=== PATIENT | male | born 1950 | race African-American/Black ===

== ENCOUNTER 2016-12-09 18:52 | Inpatient (IN) | payer MEDICAID, MEDICARE ==
[2016-12-09 19:48] LABS: Bilirubin Negative (Negative); Blood, Urine Large (Negative); Glucose, Urine (Dipstick) Negative (Negative); Ketone, Urine 15 mg/dL (Negative); Nitrite Negative (Negative); Protein, Urine (Dipstick) 100 mg/dL (Neg-Trace)
[2016-12-09 19:52] LABS: Bacteria/HPF 4+ HPF (None Seen); Squamous Epithelial 0-3 HPF (0-3)
[2016-12-09 20:02] LABS: Hyaline Casts/LPF NONE SEEN LPF (0-3 Hyaline); Yeast-All Forms None Seen HPF (None Seen)
--- NOTE | 2016-12-09 20:06 | RAD ---
AP CHEST: History: Fever. Date: 12-09-16 Comparison: 02-13-16 FINDINGS: EKG leads are seen over the chest. There is an area of airspace opacity in the region of the lateral left heart concerning for an area of opacification in the lingula. This may represent an area of lingular pneumonia. The right lung is well aerated. IMPRESSION: Area of opacity in the left pericardiac area compatible with an area of lingular pneumonia. Follow u p films to resolution recommended. POS: [facility]
[2016-12-09 20:42] LABS: Lactic Acid - Sepsis 1.4 mmol/L (0.5-2.2)
[2016-12-09 20:46] LABS: ALT (SGPT) Less than 7 U/L (8-55); AST (SGOT) 11 U/L (5-34); Alkaline Phosphatase 91 U/L (40-150); Anion Gap 13 mmol/L (10-20); BUN (Urea Nitrogen) 9 mg/dL (8.4-25.7); Bilirubin, Total 0.3 mg/dL (0.2-1.2); Calc. Creatinine Clearance 0 mL/min (70-130); Carbon Dioxide 27 mmol/L (23-31); Chloride 101 mmol/L (98-107); Estimated GFR-MDRD Greater than 90; Globulin 3.9 g/dL (2.4-3.5); Protein, Total 5.8 g/dL (5.8-8.1)
[2016-12-09 20:56] LABS: Band 14 % (5-11); Hematocrit 27.1 % (42.0-52.0); Hypochromia SLIGHT = 6-15 cells (100X) (0-5/hpf); Mean Platelet Volume 9.9 fL (7.4-10.4); Metamyelocyte 2 % (0-0); Neutrophil 74 % (42-75); Polychromasia SLIGHT = 2-3 cells (100X) (0-2/hpf); Red Blood Cell (RBC) Count 2.75 mill/uL (4.70-6.10); Schistocytes SLIGHT = 2-5 cells (100X) (0-1/hpf); White Blood Cell (WBC) Count 24.1 thou/uL (4.8-10.8)
[2016-12-09] MEDS ORDERED: Potassium Chloride 20 MEQ/100 ML PREMIX BAG ONE (21:36)
[2016-12-10] MEDS ORDERED: Sodium Chloride 0.9% 1,000 ML IV SCH (00:45)
[2016-12-10] MEDS ORDERED: Ondansetron HCl/PF 4 MG/2 ML Vial IVP PRN ×2 (00:45→03:01)
[2016-12-10] MEDS ORDERED: Ondansetron ODT 4 MG TAB SL PRN (00:45)
[2016-12-10 01:12] VITALS: BMI 27.3
[2016-12-10] MEDS ORDERED: Milk Of Magnesia 30 ML UDCUP PO PRN (03:01)
[2016-12-10] MEDS ORDERED: Acetaminophen 325 MG TAB PO PRN (03:01)
[2016-12-10] MEDS ORDERED: Senokot 8.6 MG TAB PO PRN (03:01)
[2016-12-10] MEDS ORDERED: HYDROcodone/Acetaminophen 5/325 mg Tablet PO PRN (03:01)
[2016-12-10] MEDS ORDERED: Ondansetron ODT 4 MG TAB PO PRN (03:01)
[2016-12-10] MEDS ORDERED: Loperamide HCl 2 MG CAP PO PRN (03:01)
[2016-12-10] MEDS ORDERED: Mag-Al 1200 mg/1200 mg/30 ML UDCUP PO PRN (03:01)
[2016-12-10] MEDS: NS 0.9% w/ 40 MEQ KCL 1,000 ML IV SCH ×2 (04:17→23:32)
[2016-12-10] MEDS: Vancomycin HCl 1.25 GM in Sodium Chloride 0.9% 250 ML 250 ML IVPB SCH ×2 (04:18→15:36)
[2016-12-10] MEDS: methylPREDNISolone Sod Succ/PF 125 MG/2 ML VIAL IVP SCH ×2 (05:10→15:36)
[2016-12-10 05:12] LABS: ALT (SGPT) Less than 7 U/L (8-55); AST (SGOT) 11 U/L (5-34); Alkaline Phosphatase 83 U/L (40-150); Anion Gap 8 mmol/L (10-20); BUN (Urea Nitrogen) 10 mg/dL (8.4-25.7); Bilirubin, Total 0.2 mg/dL (0.2-1.2); Calc. Creatinine Clearance 106 mL/min (70-130); Calcium 7.9 mg/dL (7.8-10.44); Carbon Dioxide 30 mmol/L (23-31); Chloride 102 mmol/L (98-107); Estimated GFR-MDRD Greater than 90; Magnesium 1.8 mg/dL (1.6-2.6)
[2016-12-10 05:17] LABS: Hematocrit 27.9 % (42.0-52.0); Mean Platelet Volume 9.5 fL (7.4-10.4); Red Blood Cell (RBC) Count 2.82 mill/uL (4.70-6.10); White Blood Cell (WBC) Count 27.5 thou/uL (4.8-10.8)
[2016-12-10 05:33] LABS: Band 16 % (5-11); Hypochromia SLIGHT = 6-15 cells (100X) (0-5/hpf); Metamyelocyte 1 % (0-0); Neutrophil 71 % (42-75); Nucleated RBC 1 % (0); Polychromasia SLIGHT = 2-3 cells (100X) (0-2/hpf); Rouleaux Formation SLIGHT = 1-5 cells (100X) (None Seen)
[2016-12-10] MEDS ORDERED: Piperacillin/Tazobactam 4.5 GM, Admixture Fee 1 EACH in Sodium Chloride 0.9% 100 ML IVPB SCH (06:00)
--- NOTE | 2016-12-10 06:24 | HP ---
PRIMARY CARE PHYSICIAN: City call admission. REASON FOR ADMISSION: Sepsis, pneumonia, urinary tract infection, and hypoxic respiratory failure. HISTORY OF PRESENT ILLNESS: A 66-year-old male with multiple medical problems, who was brought to emergency room for fever, cough, and dyspnea. This patient was having crackles all over his chest and his fever was 102.1 at home. Patient was hypoxic when Paramedics brought him to the emergency room. Patient was given IV fluid by Paramedics and this patient is an extremely poor historian. He is not able to concentrate for providing good history. He has underlying schizophrenia. When he presented to the emergency room, he was relatively hypotensive, tachycardic, and he had routine blood test, which showed leukocytosis with bandemia, hypokalemia. His urinalysis was consistent with tract infection. The chest x-ray showed lingular infiltration. This patient was recently admitted in our hospital for obstructive uropathy. At this point, we are admitting this patient for sepsis. PAST MEDICAL HISTORY: History of obstructive uropathy, resulted in two kidney failure during previous admission; history of bilateral hydronephrosis and hydroureter secondary to problem #1; history of prostate cancer with metastasis ; chronic bilateral lower extremity edema; schizophrenia; chronic macrocytic anemia; chronic thrombocytopenia; hypertension. PAST SURGICAL HISTORY: Reviewed and negative. PAST PSYCHIATRIC HISTORY: Schizophrenia. SOCIAL HISTORY: Patient is smoking. Patient also drinks alcohol. He lives in a longterm. FAMILY HISTORY: No strong family history of premature coronary artery disease, stroke, or cancer. REVIEW OF SYSTEMS: All review of systems tried to review with the patient, but unable to review because patient is not providing any good history and review of system is unreliable. ALLERGIES: No known drug allergies. CURRENT HOME MEDICATIONS: Tylenol Arthritis one tablet every 6 hourly p.r.n., Cogentin 1 mg p.o. b.i.d., vitamin B12 of 1000 mcg p.o. daily, Depakote 500 mg p.o. b.i.d., ferrous sulfate 325 mg p.o. daily, Proscar 5 mg p.o. daily, folic acid 1 mg p.o. daily, Lasix 10 mg every other day, Trileptal 75 mg p.o. b.i.d., Protonix 40 mg p.o. daily, MiraLax 17 grams p.o. daily, Flomax 0.4 mg p.o. daily , amlodipine 2.5 mg p.o. daily, Prolixin 100 mg IM every 14 days. EMERGENCY ROOM COURSE: The patient is given Zosyn, levofloxacin, IV fluids, potassium chloride, and DuoNeb therapy. PHYSICAL EXAMINATION: VITAL SIGNS: On arrival, blood pressure 105/70, pulse 112, respiratory rate 22 , temperature 98.1, saturation 97% on 4 liter oxygen, weight 77.1 kilograms. GENERAL: Patient currently appears chronically ill, sick. No obvious acute distress. HEENT: Head: Normocephalic, atraumatic. Eyes: Pupils are round, reactive to light. Extraocular muscles intact. ENT: Poor dentition, moist mucous membranes, no oral lesions. No pharyngeal erythema, no exudates. NECK: Supple. Range of motion is normal. No meningeal signs of irritation. LUNGS: Bilateral coarse breath sounds as well as coarse rhonchi and rales noted. CARDIAC: S1 and S2, regular, tachycardia, no murmur, no gallop, no rub. ABDOMEN: Soft, bowel sounds present, nontender, nondistended. No organomegaly , no mass, no suprapubic tenderness. BACK EXAMINATION: Unremarkable, no CVA tenderness. EXTREMITIES: Upper extremity, passive movement of all joints are normal. Lower extremity, bilateral chronic lower extremity hyperkeratosis and dry skin with chronic skin changes. Chronic edema noted as well. NEUROLOGIC: Grossly nonfocal examination. SIGNIFICANT LABORATORY DATA: 1. CBC: WBC 24.1, hemoglobin 8.2, platelet 230 with bandemia. 2. BMP: Sodium 138, potassium 2.6, chloride 101, carbon dioxide 27, BUN 9, creatinine 0.72, glucose 140, calcium 8.0. 3. Lactic acid 1.4. 4. LFTs: AST 11, ALT less than 7, alkaline phosphatase 91, albumin 1.9. 5. Urinalysis consistent with urinary tract infection. ASSESSMENT AND PLAN/IMPRESSION: 1. Sepsis. This patient has underlying pneumonia as well as urinary tract infection. At this point, the patient will be kept on broad spectrum antibiotic therapy with cefepime, Levaquin, and vancomycin. We will follow up on culture result and change antibiotic therapy accordingly. 2. Lingular pneumonia, community-acquired and bacterial. The patient will be on Levaquin, vancomycin, Mucinex 600 mg twice daily, DuoNeb every 6 hourly, Solu-Medrol 40 mg IV every 8 hourly. 3. Urinary tract infection. We will continue cefepime, Levaquin, and vancomycin. Follow up on urine culture result. 4. Hypokalemia. Patient is already given potassium chloride in the emergency room. We will continue IV fluid with potassium at 75 mL per hour. 5. Macrocytic anemia. Patient will be given folic acid, vitamin B12 while in hospital. 6. Schizophrenia. We will continue Depakote of 500 mg p.o. b.i.d., Cogentin 1 mg p.o. b.i.d., and Trileptal 75 mg p.o. b.i.d. and Prolixin IM every 2 weeks. 7. Benign enlargement of prostate. We will continue Proscar 5 mg p.o. daily, Flomax 0.4 mg p.o. daily. 8. Hypertension. Currently, patient's blood pressure runs lower side, so we will hold on blood pressure medication. 9. Deep venous thrombosis prophylaxis. Lovenox 40 mg subcu daily. 10. Gastrointestinal prophylaxis. Protonix 40 mg p.o. daily. CODE STATUS: The patient is FULL CODE. Patient does not have any surrogate decision maker. Disposition and plan, based on clinical course. We are expecting patient's stay in the hospital more than 2 midnights. Plan of care discussed with the patient in detail. MTDD
[2016-12-10] MEDS ORDERED: FLU VACC TS2017-18 (>65YR) 0.5 ML SYRINGE IM ONE (09:00)
[2016-12-10] MEDS: Cyanocobalamin (Vitamin B-12) 1,000 MCG TAB PO SCH (09:24)
[2016-12-10] MEDS: OXcarbazepine 150 MG TAB PO SCH ×2 (09:24→21:23)
[2016-12-10] MEDS: Folic Acid 1 MG TAB PO SCH (09:24)
[2016-12-10] MEDS: Finasteride 5 MG TAB PO SCH (09:24)
[2016-12-10] MEDS: Saccharomyces boulardii 250 MG CAP PO SCH (09:24)
[2016-12-10] MEDS: Ferrous Sulfate 325 MG TAB PO SCH (09:25)
[2016-12-10] MEDS: Cefepime 2 GM, Admixture Fee 1 EACH in Sodium Chloride 0.9% 100 ML IVPB SCH (09:25)
[2016-12-10] MEDS: Divalproex Sodium DR 500 MG TAB PO SCH ×2 (09:25→21:24)
[2016-12-10] MEDS: Polyethylene Glycol 3350 17 GM Packet PO SCH (09:44)
[2016-12-10] MEDS: guaiFENesin ER 600 MG TAB PO SCH ×2 (09:44→21:23)
[2016-12-10] MEDS: Enoxaparin Sodium 40 MG/0.4 ML SYRINGE SC SCH (09:45)
--- NOTE | 2016-12-10 14:02 | PDOC.EVN ---
Event Note - Event Note Event Note: Chart reviewed, pt seen. Pt not speaking much, occasionally agitated. Continue antibiotics. Will follow.
[2016-12-10] MEDS: Tamsulosin HCl 0.4 MG CAP PO SCH (21:23)
[2016-12-11] MEDS: Cefepime 2 GM, Admixture Fee 1 EACH in Sodium Chloride 0.9% 100 ML IVPB SCH ×3 (01:00→22:28)
[2016-12-11] MEDS: methylPREDNISolone Sod Succ/PF 125 MG/2 ML VIAL IVP SCH ×2 (01:07→05:00)
[2016-12-11] MEDS: NS 0.9% w/ 40 MEQ KCL 1,000 ML IV SCH ×2 (05:00→21:25)
[2016-12-11] MEDS: Vancomycin HCl 1.25 GM in Sodium Chloride 0.9% 250 ML 250 ML IVPB SCH ×2 (05:00→18:48)
--- NOTE | 2016-12-11 10:22 | PDOC.PN ---
- Subjective Encounter Start Date: 12/11/16 Encounter Start Time: 10:20 Mr. Dial does not have any complaints. He knows he is in a hospital, but does not know the year. - Objective Resuscitation Status: Resuscitation Status FULL:Full Resuscitation MAR Reviewed: Yes Vital Signs & Weight: Vital Signs (12 hours) Temp Pulse Resp BP Pulse Ox 12/11/16 07:49 92 20 94 L 12/11/16 04:00 97.3 F L 101 H 20 114/75 97 12/11/16 00:38 96 12/10/16 23:33 99 20 96 Weight Admit Weight 164 lb 3.2 oz Weight 164 lb 4.8 oz I&O: 12/10/16 12/11/16 12/12/16 06:59 06:59 06:59 Intake Total 2040 3660 Output Total 375 1130 Balance 1665 2530 Result Diagrams: 12/10/16 04:36 12/10/16 04:36 Additional Labs: Accuchecks 12/10/16 11:21 POC Glucose 275 H Phys Exam - Physical Examination HEENT: PERRLA + rhonchi bilaterally, no rales Cardiovascular: RRR, no significant murmur Gastrointestinal: soft, non-tender, positive bowel sounds Musculoskeletal: edema present 2-3 + edema, and chronic venous stasis changes Dx/Plan (1) Pneumonia Code(s): J18.9 - PNEUMONIA, UNSPECIFIED ORGANISM Status: Acute (2) UTI (urinary tract infection) Status: Acute Comment: Ucx pending, continue Rocephin 2gm IV q24h (3) Urinary retention due to benign prostatic hyperplasia Code(s): N40.1 - BENIGN PROSTATIC HYPERPLASIA WITH LOWER URINARY TRACT SYMP; R33.8 - OTHER RETENTION OF URINE Status: Acute (4) Diabetes type 2, controlled Code(s): E11.9 - TYPE 2 DIABETES MELLITUS WITHOUT COMPLICATIONS Status: Chronic (5) Schizophrenia Code(s): F20.9 - SCHIZOPHRENIA, UNSPECIFIED Status: Chronic - Plan * Sepsis from Pneumonia, and UTI * Continues to have Leukocytosis- will continue Levaquin, Meropenem, and Vancomycin * Await culture results * Will discontinue steroids * Patient may have some degree of dysphagia- will consult Speech therapy * DM- blood glucose is elevated- ( will discontinue steroids, and continue SSI )
[2016-12-11] MEDS: OXcarbazepine 150 MG TAB PO SCH ×2 (10:55→20:27)
[2016-12-11] MEDS: Ferrous Sulfate 325 MG TAB PO SCH (10:56)
[2016-12-11] MEDS: Cyanocobalamin (Vitamin B-12) 1,000 MCG TAB PO SCH (10:56)
[2016-12-11] MEDS: Saccharomyces boulardii 250 MG CAP PO SCH (10:56)
[2016-12-11] MEDS: Divalproex Sodium DR 500 MG TAB PO SCH ×2 (10:56→20:27)
[2016-12-11] MEDS: Finasteride 5 MG TAB PO SCH (10:56)
[2016-12-11] MEDS: guaiFENesin ER 600 MG TAB PO SCH ×2 (10:57→20:27)
[2016-12-11] MEDS: Enoxaparin Sodium 40 MG/0.4 ML SYRINGE SC SCH (10:57)
[2016-12-11] MEDS: Folic Acid 1 MG TAB PO SCH (10:57)
[2016-12-11] MEDS: Polyethylene Glycol 3350 17 GM Packet PO SCH (10:57)
--- NOTE | 2016-12-11 14:00 | PQF ---
DATE: 12-11-16 ATTN: DR. SOSA SOLARES Please exercise your independent, professional judgment in responding to the clarification form. Clinical indicators are provided on the bottom of this form for your review Please check appropriate box(s): [ X] I (concur) with ER DOCUMENTATION findings as stated below. [X ] Pressure Ulcer: (Stage I: Erythema; Stage II: Partial thickness; Stage III: Full thickness; Stage IV: Necrosis to muscle/bone) [ ] Location: ___Sacral stage 3 POA: [ X ] Yes [ ] No[ ] Unable to determine [ ] No pressure ulcer diagnosis [ ] Deep tissue injury [ ] Other diagnosis [ ] Unable to determine In addition, please specify: Present on Admission (POA): [X ] Yes [ ] No [ ] Unable to determine For continuity of documentation, please document condition throughout progress notes and discharge summary. Thank You. CLINICAL INDICATORS - SIGNS / SYMPTOMS / LABS: ER DOCUMENTATION: PRESSURE ULCER TO THE SACRUM, STAGE 3 RISK FACTORS: NURSE ASSESSMENT 12-10-16: GAIT/BALANCE: WEAK, CAN NOT STAND CLAM SHUCKER CONSULT: 12-10-16: WOUND CARE CONSULT, LIVES IN A CORRECTION. H/O PROSTATE CA WITH METASTASIS, CHRONIC B LLE EDEMA , SCHIZOPHRENIA, TREATMENTS: WOUND CARE CONSULT, CLAM SHUCKER CONSULT- ADD SF MIGHTY SHAKES BID WITH MEALS, SUPPLEMENT AUSTEN BID FOR HEALING (This form is maintained as a part of the permanent medical record) 2014 [employer]. All Rights Reserved MTDD
[2016-12-11 16:22] LABS: Vancomycin, Trough 15.2 ug/mL
[2016-12-11] MEDS: Tamsulosin HCl 0.4 MG CAP PO SCH (20:27)
--- NOTE | 2016-12-11 20:37 | RAD ---
MODIFIED BARIUM SWALLOW WITH SPEECH THERAPIST: 12/11/16 HISTORY: 66-year-old male with dysphagia, unspecified, R13-10. Feeding difficulties, R63.3. Episode of pneumonia, rule out aspiration as a cause. FINDINGS: Oral phase of swallowing is not significantly impaired. There is premature spillage into the vallecu la and piriform sinuses, with moderate residue. Although there is adequate range of movement of the epiglottic inversion, laryngeal elevation, and hyoid protraction, the entire pharyngeal phase of swa llowing is slow. Incidentally, the C5 and C6 vertebral bodies are ankylosed. No penetration of aspir ation. There is delayed swallow reflex. IMPRESSION: 1. No penetration or aspiration. 2. Premature free spillage, residue, and delayed swallow reflex. 3. Although the range of motion of the pharyngeal phase of swallowing is normal, the entire ph aryngeal phase of swallowing motion is slow. 4. 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 POS: [facility]
[2016-12-12] MEDS: Vancomycin HCl 1.25 GM in Sodium Chloride 0.9% 250 ML 250 ML IVPB SCH (03:39)
[2016-12-12 07:40] LABS: #Lymphocytes 1.1 thou/uL (1.20-3.40); #Monocytes 0.4 thou/uL (0.11-0.59); #Neutrophils 5.3 thou/uL (1.40-6.50); %Basophils 0.2 % (0.0-1.0); %Lymphocytes 16.6 % (21.0-51.0); %Monocytes 5.2 % (0.0-10.0); Hematocrit 25.9 % (42.0-52.0); Mean Platelet Volume 10.6 fL (7.4-10.4); Red Blood Cell (RBC) Count 2.57 mill/uL (4.70-6.10); White Blood Cell (WBC) Count 6.7 thou/uL (4.8-10.8)
[2016-12-12 07:57] LABS: Anion Gap 7 mmol/L (10-20); BUN (Urea Nitrogen) 9 mg/dL (8.4-25.7); Calc. Creatinine Clearance 122 mL/min (70-130); Calcium 8.4 mg/dL (7.8-10.44); Carbon Dioxide 29 mmol/L (23-31); Chloride 103 mmol/L (98-107); Estimated GFR-MDRD Greater than 90
--- NOTE | 2016-12-12 08:49 | PDOC.PN ---
- Subjective Encounter Start Date: 12/12/16 Encounter Start Time: 08:47 Mr. Dial is more alert today, I suspect he is at his baseline. He indicates no problems. - Objective Resuscitation Status: Resuscitation Status FULL:Full Resuscitation MAR Reviewed: Yes Vital Signs & Weight: Vital Signs (12 hours) Temp Pulse Resp BP Pulse Ox 12/12/16 04:00 97.5 F L 98 22 H 127/82 12/12/16 00:35 99 12/11/16 23:10 100 16 99 Weight Admit Weight 164 lb 3.2 oz Weight 164 lb 4.8 oz I&O: 12/11/16 12/12/16 12/13/16 06:59 06:59 06:59 Intake Total 3660 4405 Output Total 1130 900 Balance 2530 3505 Result Diagrams: 12/12/16 07:27 12/12/16 07:27 Phys Exam - Physical Examination HEENT: PERRLA + rales at the bases no rhonchi Cardiovascular: RRR, no significant murmur Gastrointestinal: soft, positive bowel sounds Musculoskeletal: edema present + chronic venous stasis changes + sacral decubitus Dx/Plan (1) Pneumonia Code(s): J18.9 - PNEUMONIA, UNSPECIFIED ORGANISM Status: Acute (2) UTI (urinary tract infection) Status: Acute Comment: Ucx pending, continue Rocephin 2gm IV q24h (3) Urinary retention due to benign prostatic hyperplasia Code(s): N40.1 - BENIGN PROSTATIC HYPERPLASIA WITH LOWER URINARY TRACT SYMP; R33.8 - OTHER RETENTION OF URINE Status: Acute (4) Diabetes type 2, controlled Code(s): E11.9 - TYPE 2 DIABETES MELLITUS WITHOUT COMPLICATIONS Status: Chronic (5) Schizophrenia Code(s): F20.9 - SCHIZOPHRENIA, UNSPECIFIED Status: Chronic (6) Decubitus ulcer of sacral region, stage 3 Code(s): L89.153 - PRESSURE ULCER OF SACRAL REGION, STAGE 3 Status: Acute - Plan * Pneumonia- possibly aspiration- will continue Levaquin, but will change Cefepime, to Zosyn * UTI - urine culture is positive for Pseudomonas- huynh sensitive- will continue Levaquin, and Zosyn * Sepsis- resolving. * HTN- blood pressure is stable
[2016-12-12] MEDS: OXcarbazepine 150 MG TAB PO SCH ×2 (08:54→21:32)
[2016-12-12] MEDS: Cyanocobalamin (Vitamin B-12) 1,000 MCG TAB PO SCH (08:56)
[2016-12-12] MEDS: guaiFENesin ER 600 MG TAB PO SCH ×2 (08:56→20:29)
[2016-12-12] MEDS: Ferrous Sulfate 325 MG TAB PO SCH (08:56)
[2016-12-12] MEDS: Saccharomyces boulardii 250 MG CAP PO SCH (08:56)
[2016-12-12] MEDS: Divalproex Sodium DR 500 MG TAB PO SCH ×2 (08:56→21:32)
[2016-12-12] MEDS: Finasteride 5 MG TAB PO SCH (08:56)
[2016-12-12] MEDS: Folic Acid 1 MG TAB PO SCH (08:56)
[2016-12-12] MEDS: Enoxaparin Sodium 40 MG/0.4 ML SYRINGE SC SCH (08:58)
[2016-12-12] MEDS: Polyethylene Glycol 3350 17 GM Packet PO SCH (08:58)
[2016-12-12] MEDS: NS 0.9% w/ 40 MEQ KCL 1,000 ML IV SCH (10:00)
[2016-12-12] MEDS: Amlodipine 5 MG TAB PO SCH (10:27)
[2016-12-12] MEDS: Piperacillin/Tazobactam 3.375 GM, Admixture Fee 1 EACH in Sodium Chloride 0.9% 100 ML IVPB SCH ×2 (12:41→17:32)
[2016-12-12] MEDS: Potassium Chloride 20 MEQ TAB PO SCH ×3 (17:32→18:26)
[2016-12-12] MEDS: Tamsulosin HCl 0.4 MG CAP PO SCH (20:29)
[2016-12-13] MEDS: Piperacillin/Tazobactam 3.375 GM, Admixture Fee 1 EACH in Sodium Chloride 0.9% 100 ML IVPB SCH ×5 (00:22→23:33)
[2016-12-13] MEDS: Amlodipine 5 MG TAB PO SCH (08:38)
[2016-12-13] MEDS: Cyanocobalamin (Vitamin B-12) 1,000 MCG TAB PO SCH (08:38)
[2016-12-13] MEDS: Saccharomyces boulardii 250 MG CAP PO SCH (08:38)
[2016-12-13] MEDS: Finasteride 5 MG TAB PO SCH (08:40)
[2016-12-13] MEDS: Ferrous Sulfate 325 MG TAB PO SCH (08:41)
[2016-12-13] MEDS: Folic Acid 1 MG TAB PO SCH (08:41)
[2016-12-13] MEDS: OXcarbazepine 150 MG TAB PO SCH ×2 (08:42→20:40)
[2016-12-13] MEDS: Potassium Chloride 20 MEQ TAB PO SCH ×2 (08:45→17:34)
[2016-12-13] MEDS: guaiFENesin ER 600 MG TAB PO SCH ×2 (08:47→20:41)
[2016-12-13] MEDS: Enoxaparin Sodium 40 MG/0.4 ML SYRINGE SC SCH ×2 (08:48→09:00)
[2016-12-13] MEDS: Polyethylene Glycol 3350 17 GM Packet PO SCH (08:48)
[2016-12-13] MEDS: Divalproex Sodium DR 500 MG TAB PO SCH ×2 (08:51→20:59)
[2016-12-13 09:04] LABS: Hematocrit 29.2 % (42.0-52.0); Mean Platelet Volume 10.7 fL (7.4-10.4); Red Blood Cell (RBC) Count 2.91 mill/uL (4.70-6.10); White Blood Cell (WBC) Count 8.6 thou/uL (4.8-10.8)
[2016-12-13 09:09] LABS: Anion Gap 8 mmol/L (10-20); BUN (Urea Nitrogen) 5 mg/dL (8.4-25.7); Calc. Creatinine Clearance 111 mL/min (70-130); Calcium 8.4 mg/dL (7.8-10.44); Carbon Dioxide 30 mmol/L (23-31); Chloride 105 mmol/L (98-107); Estimated GFR-MDRD Greater than 90
[2016-12-13 09:29] LABS: Band 1 % (5-11); Hypochromia SLIGHT = 6-15 cells (100X) (0-5/hpf); Macrocytosis SLIGHT = 6-15 cells (100X) (0-5/hpf); Neutrophil 75 % (42-75); Polychromasia SLIGHT = 2-3 cells (100X) (0-2/hpf)
--- NOTE | 2016-12-13 11:04 | PDOC.PN ---
- Subjective Encounter Start Date: 12/13/16 Encounter Start Time: 08:40 -: old records requested/rev Patient seen and examined. No new complaints. No overnight events - Objective Resuscitation Status: Resuscitation Status FULL:Full Resuscitation MAR Reviewed: Yes Vital Signs & Weight: Vital Signs (12 hours) Temp Pulse Resp BP BP Pulse Ox 12/13/16 08:38 115 H 119/75 12/13/16 08:00 97.7 F 115 H 16 95 12/13/16 07:51 97.7 F 115 H 16 118/75 96 12/13/16 03:59 98.3 F 96 18 128/82 97 12/13/16 00:00 98.2 F 108 H 20 115/74 98 Weight Admit Weight 164 lb 3.2 oz Weight 164 lb 4.8 oz I&O: 12/12/16 12/13/16 12/14/16 06:59 06:59 06:59 Intake Total 4405 1380 Output Total 900 2200 Balance 3505 -820 Result Diagrams: 12/13/16 08:40 12/13/16 08:40 Additional Labs: Accuchecks 12/13/16 03:55 POC Glucose 75 Phys Exam - Physical Examination Constitutional: NAD HEENT: PERRLA, moist MMs, sclera anicteric Neck: no JVD, supple Respiratory: no rhonchi, wheezing present coarse sound this morning Cardiovascular: RRR, no significant murmur, no rub Gastrointestinal: soft, non-tender, no distention, positive bowel sounds Musculoskeletal: no edema, pulses present adams+ Neurological: moves all 4 limbs Lymphatic: no nodes Psychiatric: normal affect Skin: no rash, normal turgor Dx/Plan (1) Decubitus ulcer of sacral region, stage 3 Code(s): L89.153 - PRESSURE ULCER OF SACRAL REGION, STAGE 3 Status: Acute (2) Hypokalemia Code(s): E87.6 - HYPOKALEMIA Status: Acute (3) Lactic acidosis Code(s): E87.2 - ACIDOSIS Status: Acute (4) Pneumonia Code(s): J18.9 - PNEUMONIA, UNSPECIFIED ORGANISM Status: Acute (5) UTI (urinary tract infection) Status: Acute Comment: Ucx pending, continue Rocephin 2gm IV q24h (6) BPH (benign prostatic hyperplasia) Code(s): N40.0 - BENIGN PROSTATIC HYPERPLASIA WITHOUT LOWER URINRY TRACT SYMP Status: Chronic (7) Constipation Code(s): K59.00 - CONSTIPATION, UNSPECIFIED Status: Chronic (8) Diabetes type 2, controlled Code(s): E11.9 - TYPE 2 DIABETES MELLITUS WITHOUT COMPLICATIONS Status: Chronic (9) Macrocytic anemia Code(s): D53.9 - NUTRITIONAL ANEMIA, UNSPECIFIED Status: Chronic (10) Schizophrenia Code(s): F20.9 - SCHIZOPHRENIA, UNSPECIFIED Status: Chronic (11) Urinary retention due to benign prostatic hyperplasia Code(s): N40.1 - BENIGN PROSTATIC HYPERPLASIA WITH LOWER URINARY TRACT SYMP; R33.8 - OTHER RETENTION OF URINE Status: Chronic - Plan cont current plan of care, adams catheter, continue antibiotics, PT/OT, social security specialist, speech therapy, respiratory therapy * medication reviewed as below * symptomatic treatment * repeat labs tomorrow * modified diet. * continue zosyn and levaquin Review of Systems - Review of Systems ENT: negative: Ear Pain, Ear Discharge, Nose Pain, Nose Discharge, Nose Congestion, Mouth Pain, Mouth Swelling, Throat Pain, Throat Swelling, Other Respiratory: negative: Cough, Dry, Shortness of Breath, Hemoptysis, SOB with Excertion, Pleuritic Pain, Sputum, Wheezing Cardiovascular: negative: Chest Pain, Palpitations, Orthopnea, Paroxysmal Noc. Dyspnea, Edema, Light Headedness, Other Gastrointestinal: negative: Nausea, Vomiting, Abdominal Pain, Diarrhea, Constipation, Melena, Hematochezia, Other Genitourinary: negative: Dysuria, Frequency, Incontinence, Hematuria, Retention , Other Musculoskeletal: negative: Neck Pain, Shoulder Pain, Arm Pain, Back Pain, Hand Pain, Leg Pain, Foot Pain, Other Other: not reliable due to schizophrenia - Medications/Allergies Allergies/Adverse Reactions: Allergies Allergy/AdvReac Type Severity Reaction Status Date / Time No Known Drug Allergies Allergy Unknown Verified 12/10/16 00:59 Medications: Current Medications Acetaminophen (Tylenol) 650 mg PO Q4H PRN PRN Reason: Headache/Fever or Pain Hydrocodone Bitart/Acetaminophen (Fisher 5/325) 1 tab PO Q4H PRN PRN Reason: Moderate Pain (4-6) Al Hydroxide/Mg Hydroxide (Maalox) 30 ml PO Q6H PRN PRN Reason: Heartburn or Indigestion Albuterol/Ipratropium (Duoneb) 3 ml NEB Q6H PRN PRN Reason: SOB &/or Wheezing Albuterol/Ipratropium (Duoneb) 3 ml NEB [id number] [facility] Last Admin: 12/13/16 06:52 Dose: Not Given Amlodipine Besylate (Norvasc) 2.[address] [facility] Last Admin: 12/13/16 08:38 Dose: 2.5 mg Benztropine Mesylate (Cogentin) [address] [facility] Last Admin: 12/13/16 08:40 Dose: 1 mg Cyanocobalamin (Vitamin B-12) 1,[address] [facility] Last Admin: 12/13/16 08:38 Dose: 1,000 mcg Divalproex Sodium (Depakote) [address] [facility] Last Admin: 12/13/16 08:51 Dose: 500 mg Enoxaparin Sodium (Lovenox) [address] [facility] Last Admin: 12/13/16 09:00 Dose: Not Given Ferrous Sulfate (Feosol) 325 mg PO QAM-WM [facility] Last Admin: 12/13/16 08:41 Dose: 325 mg Finasteride (Proscar) [address] [facility] Last Admin: 12/13/16 08:40 Dose: 5 mg Fluphenazine Decanoate (Prolixin D) [address] [facility] Folic Acid (Folvite) [address] [facility] Last Admin: 12/13/16 08:41 Dose: 1 mg Guaifenesin (Mucinex) [address] [facility] Last Admin: 12/13/16 08:47 Dose: 600 mg Levofloxacin 500 mg/ Device 100 mls @ 100 mls/hr IVPB Q24HR [facility] Last Admin: 12/12/16 20:28 Dose: 100 mls Piperacillin Sod/Tazobactam Sod 3.375 gm/ Miscellaneous Medication 1 each/ Sodium Chloride 100 mls @ 200 mls/hr IVPB Q6HR [facility] Last Admin: 12/13/16 05:42 Dose: 100 mls Loperamide HCl (Imodium) 2 mg PO PRN PRN PRN Reason: Diarrhea/Loose Stools Magnesium Hydroxide (Milk Of Magnesium) 30 ml PO DAILYPRN PRN PRN Reason: Constipation Ondansetron HCl (Zofran Odt) 4 mg PO Q6H PRN PRN Reason: Nausea/Vomiting Ondansetron HCl (Zofran) 4 mg IVP Q6H PRN PRN Reason: Nausea/Vomiting Oxcarbazepine (Trileptal) [address] [facility] Last Admin: 12/13/16 08:42 Dose: 75 mg Pantoprazole Sodium (Protonix) [address] [facility] Last Admin: 12/13/16 08:38 Dose: 40 mg Polyethylene Glycol (Miralax) [address] [facility] Last Admin: 12/13/16 08:48 Dose: Not Given Potassium Chloride (K-Dur) 40 meq PO BID-[facility] Last Admin: 12/13/16 08:45 Dose: 40 meq Saccharomyces Boulardii (Florastor) [address] [facility] Last Admin: 12/13/16 08:38 Dose: 250 mg Senna (Senokot) 2 tab PO HSPRN PRN PRN Reason: Constipation Sodium Chloride (Flush - Normal Saline) [address] [facility] Last Admin: 12/13/16 08:48 Dose: 10 ml Sodium Chloride (Flush - Normal Saline) 10 ml IVF PRN PRN PRN Reason: Saline Flush Tamsulosin HCl (Flomax) 0.[address] [facility] Last Admin: 12/12/16 20:29 Dose: 0.4 mg Zolpidem Tartrate (Ambien) 5 mg PO HSPRN PRN PRN Reason: Insomnia
[2016-12-13] MEDS: Tamsulosin HCl 0.4 MG CAP PO SCH (20:42)
[2016-12-14] MEDS: Piperacillin/Tazobactam 3.375 GM, Admixture Fee 1 EACH in Sodium Chloride 0.9% 100 ML IVPB SCH ×4 (05:15→23:19)
[2016-12-14] MEDS: Cyanocobalamin (Vitamin B-12) 1,000 MCG TAB PO SCH (08:31)
[2016-12-14] MEDS: Amlodipine 5 MG TAB PO SCH (08:31)
[2016-12-14] MEDS: Saccharomyces boulardii 250 MG CAP PO SCH (08:31)
[2016-12-14] MEDS: Potassium Chloride 20 MEQ TAB PO SCH ×2 (08:32→18:00)
[2016-12-14] MEDS: Folic Acid 1 MG TAB PO SCH (08:32)
[2016-12-14] MEDS: Ferrous Sulfate 325 MG TAB PO SCH (08:32)
[2016-12-14] MEDS: Finasteride 5 MG TAB PO SCH (08:32)
[2016-12-14] MEDS: Divalproex Sodium DR 500 MG TAB PO SCH ×2 (08:34→20:30)
[2016-12-14] MEDS: guaiFENesin ER 600 MG TAB PO SCH ×2 (08:34→20:30)
[2016-12-14] MEDS: OXcarbazepine 150 MG TAB PO SCH ×2 (08:34→20:31)
[2016-12-14] MEDS: Polyethylene Glycol 3350 17 GM Packet PO SCH (08:35)
--- NOTE | 2016-12-14 08:43 | RAD ---
1 VIEW CHEST: Date: 12/14/16 COMPARISON: 12/09/16. HISTORY: Pneumonia follow-up. FINDINGS: Persistent opacities in the lung bases. Stable configuration of the cardiac silhouette. The aortic k now appears to be prominent. No pneumothorax. IMPRESSION: Persistent multilobar opacities. Continued surveillance. POS: [facility]
[2016-12-14 08:45] LABS: Anion Gap 8 mmol/L (10-20); BUN (Urea Nitrogen) 4 mg/dL (8.4-25.7); Calc. Creatinine Clearance 122 mL/min (70-130); Calcium 8.3 mg/dL (7.8-10.44); Carbon Dioxide 31 mmol/L (23-31); Chloride 106 mmol/L (98-107); Estimated GFR-MDRD Greater than 90; Magnesium 1.6 mg/dL (1.6-2.6); Phosphorus 2.2 mg/dL (2.3-4.7)
[2016-12-14] MEDS: Enoxaparin Sodium 40 MG/0.4 ML SYRINGE SC SCH (08:49)
--- NOTE | 2016-12-14 10:12 | PDOC.PN ---
- Subjective Encounter Start Date: 12/14/16 Encounter Start Time: 08:50 Patient seen and examined. No new complaints. No overnight events - Objective Resuscitation Status: Resuscitation Status FULL:Full Resuscitation MAR Reviewed: Yes Vital Signs & Weight: Vital Signs (12 hours) Temp Pulse Resp BP Pulse Ox 12/14/16 08:31 91 12/14/16 08:00 97.8 F 91 24 H 99 12/14/16 07:20 97.8 F 94 24 H 107/69 99 12/14/16 04:00 98.2 F 91 16 113/75 96 12/14/16 00:00 97.7 F 91 16 113/75 100 Weight Admit Weight 164 lb 3.2 oz Weight 164 lb 4.8 oz I&O: 12/13/16 12/14/16 12/15/16 06:59 06:59 06:59 Intake Total 1380 500 180 Output Total 2200 2200 Balance -820 -1700 180 Result Diagrams: 12/13/16 08:40 12/14/16 08:13 Radiology Reviewed by me: Yes (chest xray) Phys Exam - Physical Examination Constitutional: NAD HEENT: PERRLA, moist MMs, sclera anicteric Neck: no JVD, supple Respiratory: no wheezing, no rales, no rhonchi Cardiovascular: RRR, no significant murmur, no rub Gastrointestinal: soft, non-tender, no distention Musculoskeletal: no edema, pulses present Neurological: moves all 4 limbs Lymphatic: no nodes Psychiatric: normal affect Skin: no rash, normal turgor Dx/Plan (1) Decubitus ulcer of sacral region, stage 3 Code(s): L89.153 - PRESSURE ULCER OF SACRAL REGION, STAGE 3 Status: Acute (2) Hypokalemia Code(s): E87.6 - HYPOKALEMIA Status: Acute (3) Lactic acidosis Code(s): E87.2 - ACIDOSIS Status: Acute (4) Pneumonia Code(s): J18.9 - PNEUMONIA, UNSPECIFIED ORGANISM Status: Acute (5) UTI (urinary tract infection) Status: Acute Comment: Ucx pending, continue Rocephin 2gm IV q24h (6) BPH (benign prostatic hyperplasia) Code(s): N40.0 - BENIGN PROSTATIC HYPERPLASIA WITHOUT LOWER URINRY TRACT SYMP Status: Chronic (7) Constipation Code(s): K59.00 - CONSTIPATION, UNSPECIFIED Status: Chronic (8) Diabetes type 2, controlled Code(s): E11.9 - TYPE 2 DIABETES MELLITUS WITHOUT COMPLICATIONS Status: Chronic (9) Macrocytic anemia Code(s): D53.9 - NUTRITIONAL ANEMIA, UNSPECIFIED Status: Chronic (10) Schizophrenia Code(s): F20.9 - SCHIZOPHRENIA, UNSPECIFIED Status: Chronic (11) Urinary retention due to benign prostatic hyperplasia Code(s): N40.1 - BENIGN PROSTATIC HYPERPLASIA WITH LOWER URINARY TRACT SYMP; R33.8 - OTHER RETENTION OF URINE Status: Chronic - Plan cont current plan of care, continue antibiotics * repeat chest xray done and reviewed * will continue IV zosyn and levaquin * medication reviewed as below * symptomatic treatment. Review of Systems - Review of Systems ENT: negative: Ear Pain, Ear Discharge, Nose Pain, Nose Discharge, Nose Congestion, Mouth Pain, Mouth Swelling, Throat Pain, Throat Swelling, Other Respiratory: negative: Cough, Dry, Shortness of Breath, Hemoptysis, SOB with Excertion, Pleuritic Pain, Sputum, Wheezing Cardiovascular: negative: Chest Pain, Palpitations, Orthopnea, Paroxysmal Noc. Dyspnea, Edema, Light Headedness, Other Gastrointestinal: negative: Nausea, Vomiting, Abdominal Pain, Diarrhea, Constipation, Melena, Hematochezia, Other Genitourinary: negative: Dysuria, Frequency, Incontinence, Hematuria, Retention , Other Musculoskeletal: negative: Neck Pain, Shoulder Pain, Arm Pain, Back Pain, Hand Pain, Leg Pain, Foot Pain, Other Other: not reliable due to schizophrenia - Medications/Allergies Allergies/Adverse Reactions: Allergies Allergy/AdvReac Type Severity Reaction Status Date / Time No Known Drug Allergies Allergy Unknown Verified 12/10/16 00:59 Medications: Current Medications Acetaminophen (Tylenol) 650 mg PO Q4H PRN PRN Reason: Headache/Fever or Pain Hydrocodone Bitart/Acetaminophen (Hardy 5/325) 1 tab PO Q4H PRN PRN Reason: Moderate Pain (4-6) Al Hydroxide/Mg Hydroxide (Maalox) 30 ml PO Q6H PRN PRN Reason: Heartburn or Indigestion Albuterol/Ipratropium (Duoneb) 3 ml NEB Q6H PRN PRN Reason: SOB &/or Wheezing Albuterol/Ipratropium (Duoneb) 3 ml NEB [id number] Last Admin: 12/14/16 05:49 Dose: Not Given Amlodipine Besylate (Norvasc) 2.5 mg PO DAILY [facility] Last Admin: 12/14/16 08:31 Dose: 2.5 mg Benztropine Mesylate (Cogentin) 1 mg PO BID [facility] Last Admin: 12/14/16 08:34 Dose: 1 mg Cyanocobalamin (Vitamin B-12) 1,000 mcg PO DAILY [facility] Last Admin: 12/14/16 08:31 Dose: 1,000 mcg Divalproex Sodium (Depakote) 500 mg PO BID [facility] Last Admin: 12/14/16 08:34 Dose: 500 mg Enoxaparin Sodium (Lovenox) 40 mg SC 0900 [facility] Last Admin: 12/14/16 08:49 Dose: 40 mg Ferrous Sulfate (Feosol) 325 mg PO QAM-[facility] Last Admin: 12/14/16 08:32 Dose: 325 mg Finasteride (Proscar) 5 mg PO DAILY [facility] Last Admin: 12/14/16 08:32 Dose: 5 mg Fluphenazine Decanoate (Prolixin D) 100 mg IM Q14D [facility] Folic Acid (Folvite) 1 mg PO DAILY [facility] Last Admin: 12/14/16 08:32 Dose: 1 mg Guaifenesin (Mucinex) 600 mg PO Q12HR [facility] Last Admin: 12/14/16 08:34 Dose: 600 mg Levofloxacin 500 mg/ Device 100 mls @ 100 mls/hr IVPB Q24HR [facility] Last Admin: 12/13/16 20:40 Dose: 100 mls Piperacillin Sod/Tazobactam Sod 3.375 gm/ Miscellaneous Medication 1 each/ Sodium Chloride 100 mls @ 200 mls/hr IVPB Q6HR [facility] Last Admin: 12/14/16 05:15 Dose: 100 mls Loperamide HCl (Imodium) 2 mg PO PRN PRN PRN Reason: Diarrhea/Loose Stools Magnesium Hydroxide (Milk Of Magnesium) 30 ml PO DAILYPRN PRN PRN Reason: Constipation Ondansetron HCl (Zofran Odt) 4 mg PO Q6H PRN PRN Reason: Nausea/Vomiting Ondansetron HCl (Zofran) 4 mg IVP Q6H PRN PRN Reason: Nausea/Vomiting Oxcarbazepine (Trileptal) 75 mg PO BID [facility] Last Admin: 12/14/16 08:34 Dose: 75 mg Pantoprazole Sodium (Protonix) 40 mg PO DAILY [facility] Last Admin: 12/14/16 08:32 Dose: 40 mg Polyethylene Glycol (Miralax) 17 gm PO DAILY [facility] Last Admin: 12/14/16 08:35 Dose: Not Given Potassium Chloride (K-Dur) 40 meq PO BID-[facility] Last Admin: 12/14/16 08:32 Dose: 40 meq Saccharomyces Boulardii (Florastor) 250 mg PO DAILY [facility] Last Admin: 12/14/16 08:31 Dose: 250 mg Senna (Senokot) 2 tab PO HSPRN PRN PRN Reason: Constipation Sodium Chloride (Flush - Normal Saline) 10 ml IVF Q12HR [facility] Last Admin: 12/14/16 08:35 Dose: 10 ml Sodium Chloride (Flush - Normal Saline) 10 ml IVF PRN PRN PRN Reason: Saline Flush Tamsulosin HCl (Flomax) 0.4 mg PO HS [facility] Last Admin: 12/13/16 20:42 Dose: 0.4 mg Zolpidem Tartrate (Ambien) 5 mg PO HSPRN PRN PRN Reason: Insomnia
[2016-12-14] MEDS: Tamsulosin HCl 0.4 MG CAP PO SCH (20:29)
[2016-12-14] MEDS: Zolpidem Tartrate 5 MG TAB PO PRN (20:29)
[2016-12-15] MEDS: Piperacillin/Tazobactam 3.375 GM, Admixture Fee 1 EACH in Sodium Chloride 0.9% 100 ML IVPB SCH ×4 (06:35→23:01)
[2016-12-15] MEDS: Divalproex Sodium DR 500 MG TAB PO SCH ×2 (08:53→19:58)
[2016-12-15] MEDS: Potassium Chloride 20 MEQ TAB PO SCH ×2 (08:54→17:14)
[2016-12-15] MEDS: Ferrous Sulfate 325 MG TAB PO SCH (08:54)
[2016-12-15] MEDS: Amlodipine 5 MG TAB PO SCH (08:54)
[2016-12-15] MEDS: Cyanocobalamin (Vitamin B-12) 1,000 MCG TAB PO SCH (08:55)
[2016-12-15] MEDS: Saccharomyces boulardii 250 MG CAP PO SCH (08:55)
[2016-12-15] MEDS: guaiFENesin ER 600 MG TAB PO SCH ×2 (08:55→19:57)
[2016-12-15] MEDS: Finasteride 5 MG TAB PO SCH (08:55)
[2016-12-15] MEDS: OXcarbazepine 150 MG TAB PO SCH ×2 (08:55→19:58)
[2016-12-15] MEDS: Folic Acid 1 MG TAB PO SCH (08:56)
[2016-12-15] MEDS: Enoxaparin Sodium 40 MG/0.4 ML SYRINGE SC SCH (08:56)
[2016-12-15] MEDS: Polyethylene Glycol 3350 17 GM Packet PO SCH (08:56)
--- NOTE | 2016-12-15 10:47 | PDOC.PN ---
- Subjective Encounter Start Date: 12/15/16 Encounter Start Time: 07:40 Patient seen and examined. No new complaints. No overnight events - Objective Resuscitation Status: Resuscitation Status FULL:Full Resuscitation MAR Reviewed: Yes Vital Signs & Weight: Vital Signs (12 hours) Temp Pulse Resp BP BP Pulse Ox 12/15/16 08:54 94 116/73 12/15/16 07:27 98.4 F 94 20 116/73 97 12/15/16 06:55 98.1 F 94 18 12/15/16 04:00 98.1 F 94 18 122/73 100 12/14/16 23:22 98.2 F 88 16 134/78 96 Weight Admit Weight 164 lb 3.2 oz Weight 164 lb 4.8 oz I&O: 12/14/16 12/15/16 12/16/16 06:59 06:59 06:59 Intake Total 500 1330 180 Output Total 2200 1500 Balance -1700 -170 180 Result Diagrams: 12/13/16 08:40 12/14/16 08:13 Additional Labs: Accuchecks 12/14/16 20:33 POC Glucose 106 Phys Exam - Physical Examination Constitutional: NAD HEENT: PERRLA, moist MMs, sclera anicteric Neck: no JVD, supple Respiratory: no wheezing, no rales, no rhonchi Cardiovascular: RRR, no significant murmur, no rub Gastrointestinal: soft, non-tender, no distention, positive bowel sounds Musculoskeletal: no edema, pulses present Neurological: non-focal, normal sensation, moves all 4 limbs Lymphatic: no nodes Psychiatric: normal affect, A&O x 3 Skin: no rash, normal turgor Dx/Plan (1) Decubitus ulcer of sacral region, stage 3 Code(s): L89.153 - PRESSURE ULCER OF SACRAL REGION, STAGE 3 Status: Acute (2) Hypokalemia Code(s): E87.6 - HYPOKALEMIA Status: Acute (3) Lactic acidosis Code(s): E87.2 - ACIDOSIS Status: Acute (4) Pneumonia Code(s): J18.9 - PNEUMONIA, UNSPECIFIED ORGANISM Status: Acute (5) UTI (urinary tract infection) Status: Acute (6) BPH (benign prostatic hyperplasia) Code(s): N40.0 - BENIGN PROSTATIC HYPERPLASIA WITHOUT LOWER URINRY TRACT SYMP Status: Chronic (7) Constipation Code(s): K59.00 - CONSTIPATION, UNSPECIFIED Status: Chronic (8) Diabetes type 2, controlled Code(s): E11.9 - TYPE 2 DIABETES MELLITUS WITHOUT COMPLICATIONS Status: Chronic (9) Macrocytic anemia Code(s): D53.9 - NUTRITIONAL ANEMIA, UNSPECIFIED Status: Chronic (10) Schizophrenia Code(s): F20.9 - SCHIZOPHRENIA, UNSPECIFIED Status: Chronic (11) Urinary retention due to benign prostatic hyperplasia Code(s): N40.1 - BENIGN PROSTATIC HYPERPLASIA WITH LOWER URINARY TRACT SYMP; R33.8 - OTHER RETENTION OF URINE Status: Chronic - Plan cont current plan of care, continue antibiotics * medication reviewed as below * symptomatic treatment * continue zosyn and levaquin * expecting discharge tomorrow to [facility]. Review of Systems - Review of Systems ENT: negative: Ear Pain, Ear Discharge, Nose Pain, Nose Discharge, Nose Congestion, Mouth Pain, Mouth Swelling, Throat Pain, Throat Swelling, Other Respiratory: negative: Cough, Dry, Shortness of Breath, Hemoptysis, SOB with Excertion, Pleuritic Pain, Sputum, Wheezing Cardiovascular: negative: Chest Pain, Palpitations, Orthopnea, Paroxysmal Noc. Dyspnea, Edema, Light Headedness, Other Gastrointestinal: negative: Nausea, Vomiting, Abdominal Pain, Diarrhea, Constipation, Melena, Hematochezia, Other Genitourinary: negative: Dysuria, Frequency, Incontinence, Hematuria, Retention , Other Musculoskeletal: negative: Neck Pain, Shoulder Pain, Arm Pain, Back Pain, Hand Pain, Leg Pain, Foot Pain, Other - Medications/Allergies Allergies/Adverse Reactions: Allergies Allergy/AdvReac Type Severity Reaction Status Date / Time No Known Drug Allergies Allergy Unknown Verified 12/10/16 00:59 Medications: Current Medications Acetaminophen (Tylenol) 650 mg PO Q4H PRN PRN Reason: Headache/Fever or Pain Hydrocodone Bitart/Acetaminophen (Webster 5/325) 1 tab PO Q4H PRN PRN Reason: Moderate Pain (4-6) Al Hydroxide/Mg Hydroxide (Maalox) 30 ml PO Q6H PRN PRN Reason: Heartburn or Indigestion Albuterol/Ipratropium (Duoneb) 3 ml NEB Q6H PRN PRN Reason: SOB &/or Wheezing Amlodipine Besylate (Norvasc) 2.5 mg PO DAILY [facility] Last Admin: 12/15/16 08:54 Dose: 2.5 mg Benztropine Mesylate (Cogentin) 1 mg PO BID [facility] Last Admin: 12/15/16 08:55 Dose: 1 mg Cyanocobalamin (Vitamin B-12) 1,000 mcg PO DAILY [facility] Last Admin: 12/15/16 08:55 Dose: 1,000 mcg Divalproex Sodium (Depakote) 500 mg PO BID [facility] Last Admin: 12/15/16 08:53 Dose: 500 mg Enoxaparin Sodium (Lovenox) 40 mg SC 0900 [facility] Last Admin: 12/15/16 08:56 Dose: 40 mg Ferrous Sulfate (Feosol) 325 mg PO QAM-[facility] Last Admin: 12/15/16 08:54 Dose: 325 mg Finasteride (Proscar) 5 mg PO DAILY [facility] Last Admin: 12/15/16 08:55 Dose: 5 mg Fluphenazine Decanoate (Prolixin D) 100 mg IM Q14D [facility] Folic Acid (Folvite) 1 mg PO DAILY [facility] Last Admin: 12/15/16 08:56 Dose: 1 mg Guaifenesin (Mucinex) 600 mg PO Q12HR [facility] Last Admin: 12/15/16 08:55 Dose: 600 mg Levofloxacin 500 mg/ Device 100 mls @ 100 mls/hr IVPB Q24HR [facility] Last Admin: 12/14/16 20:29 Dose: 100 mls Piperacillin Sod/Tazobactam Sod 3.375 gm/ Miscellaneous Medication 1 each/ Sodium Chloride 100 mls @ 200 mls/hr IVPB Q6HR [facility] Last Admin: 12/15/16 06:35 Dose: 100 mls Loperamide HCl (Imodium) 2 mg PO PRN PRN PRN Reason: Diarrhea/Loose Stools Magnesium Hydroxide (Milk Of Magnesium) 30 ml PO DAILYPRN PRN PRN Reason: Constipation Ondansetron HCl (Zofran Odt) 4 mg PO Q6H PRN PRN Reason: Nausea/Vomiting Ondansetron HCl (Zofran) 4 mg IVP Q6H PRN PRN Reason: Nausea/Vomiting Oxcarbazepine (Trileptal) 75 mg PO BID [facility] Last Admin: 12/15/16 08:55 Dose: 75 mg Pantoprazole Sodium (Protonix) 40 mg PO DAILY [facility] Last Admin: 12/15/16 08:55 Dose: 40 mg Polyethylene Glycol (Miralax) 17 gm PO DAILY [facility] Last Admin: 12/15/16 08:56 Dose: Not Given Potassium Chloride (K-Dur) 40 meq PO BID-[facility] Last Admin: 12/15/16 08:54 Dose: 40 meq Saccharomyces Boulardii (Florastor) 250 mg PO DAILY [facility] Last Admin: 12/15/16 08:55 Dose: 250 mg Senna (Senokot) 2 tab PO HSPRN PRN PRN Reason: Constipation Sodium Chloride (Flush - Normal Saline) 10 ml IVF Q12HR [facility] Last Admin: 12/15/16 08:56 Dose: 10 ml Sodium Chloride (Flush - Normal Saline) 10 ml IVF PRN PRN PRN Reason: Saline Flush Tamsulosin HCl (Flomax) 0.4 mg PO HS [facility] Last Admin: 12/14/16 20:29 Dose: 0.4 mg Zolpidem Tartrate (Ambien) 5 mg PO HSPRN PRN PRN Reason: Insomnia Last Admin: 12/14/16 20:29 Dose: 5 mg
[2016-12-15] MEDS: Zolpidem Tartrate 5 MG TAB PO PRN (19:57)
[2016-12-15] MEDS: Tamsulosin HCl 0.4 MG CAP PO SCH (19:58)
[2016-12-16] MEDS: Piperacillin/Tazobactam 3.375 GM, Admixture Fee 1 EACH in Sodium Chloride 0.9% 100 ML IVPB SCH ×2 (04:43→12:11)
[2016-12-16 07:13] VITALS: TEMP 98.6
[2016-12-16] MEDS: OXcarbazepine 150 MG TAB PO SCH (09:09)
[2016-12-16] MEDS: Divalproex Sodium DR 500 MG TAB PO SCH (09:10)
[2016-12-16] MEDS: Saccharomyces boulardii 250 MG CAP PO SCH (09:10)
[2016-12-16] MEDS: Potassium Chloride 20 MEQ TAB PO SCH (09:10)
[2016-12-16] MEDS: Ferrous Sulfate 325 MG TAB PO SCH (09:10)
[2016-12-16] MEDS: Amlodipine 5 MG TAB PO SCH (09:11)
[2016-12-16] MEDS: guaiFENesin ER 600 MG TAB PO SCH (09:14)
[2016-12-16] MEDS: Folic Acid 1 MG TAB PO SCH (09:14)
[2016-12-16] MEDS: Finasteride 5 MG TAB PO SCH (09:14)
[2016-12-16] MEDS: Cyanocobalamin (Vitamin B-12) 1,000 MCG TAB PO SCH (09:14)
[2016-12-16] MEDS: Enoxaparin Sodium 40 MG/0.4 ML SYRINGE SC SCH (09:15)
[2016-12-16] MEDS: Polyethylene Glycol 3350 17 GM Packet PO SCH (09:34)
[2016-12-16 09:37] VITALS: BP 124/75
--- NOTE | 2016-12-16 12:46 | DIS ---
DATE OF ADMISSION: 12/09/2016 DATE OF DISCHARGE: 12/16/2016 PRIMARY CARE PHYSICIAN: Lorenzo Garcia M.D. DISCHARGE DISPOSITION: [facility] long term. PRIMARY DISCHARGE DIAGNOSES: 1. Acute aspiration pneumonia. 2. Sepsis. 3. Urinary tract infection. 4. Hypokalemia. SECONDARY DISCHARGE DIAGNOSES: Schizophrenia, macrocytic anemia, benign enlargement of prostate, or opharyngeal dysphagia on modified diet, hypertension, physical deconditioning, obstructive uropathy with Jackman catheter, history of prostate cancer with metastasis, hypertension. PRIMARY PROCEDURE/OPERATION: None. RADIOLOGICAL INVESTIGATION: Chest x-ray showed multifocal infiltration. Modified barium swallow [facility] Speech Therapy was done. SIGNIFICANT LABORATORY DATA: WBC 8.6, hemoglobin 8.5, platelets 234. Sodium 142, potassium 3.3, BU N 4, creatinine 0.61, phosphorus 2.2, magnesium 1.6. Urinalysis suggestive of UTI. Urine culture g rew polymicrobial rambo. Blood culture was negative. DISCHARGE MEDICATIONS: Augmentin 875 mg twice daily for 10 days, Levaquin 500 mg p.o. daily, Floras tor 250 mg p.o. daily for 5 days, Tylenol Arthritis 650 mg p.o. q.6 hourly p.r.n., amlodipine 2.5 mg p.o. daily, Cogentin 1 mg p.o. b.i.d., vitamin B12 1000 mcg p.o. daily, Depakote 500 mg p.o. b.i.d. , ferrous sulfate 325 mg p.o. daily, Proscar 5 mg p.o. daily, folic acid 1 mg p.o. daily, Lasix 10 m g every other day, Trileptal 75 mg p.o. b.i.d., Protonix 40 mg p.o. daily, MiraLax 17 grams p.o. eliane ly, Florastor 250 mg p.o. daily, Flomax 0.4 mg p.o. at bedtime, fluphenazine 100 mg IM every 2 weeks . CONTRAINDICATIONS: None. CODE STATUS: FULL CODE. INPATIENT CONSULTANTS: None. ALLERGIES: No known drug allergy. DISCHARGE PLAN: Post hospital, the patient is discharged to [facility]. The patient wi follow up with primary care physician. HOSPITAL COURSE: A 66-year-old male with above mentioned medical problem who was admitted by [facility] on 12/09/2016. He is from long term and he was sent to long term because he was having fever of 102.1. Patient was hypoxic. He was having gurgling in his chest. He was suspected for aspiration pneumonia. His chest x-ray also showed lingular infiltration. His urinalysis was consistent with U TI. He has chronic indwelling catheter for obstructive uropathy. His urine grew polymicrobial orga nism. The patient was treated with Zosyn and vancomycin, and subsequently Levaquin was also added. Upon stabilization, this patient was transferred from [facility] medical floor. We continued IV antib iotic therapy during entire hospital course. On discharge, we are changing to Augmentin and Levaqui n. The patient is currently on modified diet based on speech therapy evaluation. While in hospital, we continued all his home medication as well as on discharge, we continued simila r home medications. New medication prescription given. Patient is seen and examined at bedside today. Paperwork for discharge done and discharge medicati on reconciliation done. PHYSICAL EXAMINATION: VITAL SIGNS: Currently, temperature 98.6, pulse 82, respiratory rate 16, saturation 94%, blood pres sure 112/73, and weight 164 pounds. GENERAL: The patient is currently alert, awake, no obvious acute distress. LUNGS: Clear. CARDIAC: S1, S2 regular without any murmur. ABDOMEN: Soft and benign. EXTREMITIES: No edema. NEUROLOGIC: Nonfocal examination. Overall, patient is medically stable for discharge and he is at high risk for recurrent admission. Total time spent on discharge day more than 30 minutes.
== END 2016-12-16 16:21 | DRG 871 ==
LOC: ERS 18:52 → 2NO 20:27 → T4-B 12-12 16:27
PROVIDERS: ADMIT Internal Medicine Infectious Disease; ATTEND Internal Medicine Infectious Disease
DX: A41.9 Sepsis, unspecified organism (principal); J69.0 Pneumonitis due to inhalation of food and vomit; J96.01 Acute respiratory failure with hypoxia; E87.2 Acidosis; L89.153 Pressure ulcer of sacral region, stage 3; N13.8 Other obstructive and reflux uropathy; R13.12 Dysphagia, oropharyngeal phase; N39.0 Urinary tract infection, site not specified; D53.9 Nutritional anemia, unspecified; I10 Essential (primary) hypertension; E11.9 Type 2 diabetes mellitus without complications; E87.6 Hypokalemia; N40.1 Benign prostatic hyperplasia with lower urinary tract symptoms; Z85.46 Personal history of malignant neoplasm of prostate; F20.3 Undifferentiated schizophrenia; F17.210 Nicotine dependence, cigarettes, uncomplicated
CPT/HCPCS: 36415; 36416; 71010; 74230; 80048; 80053; 80202; 81003; 81015; 83605; 83735; 84100; 85025; 87040; 87077; 87086; 87186; 93005; 94640; 96365; 96366; 96368; A4216; G8978-GP-CJ; G8979-GP-CI; G8996-GN-CK; G8996-GN-CN; G8997-GN-CK; G8997-GN-CL; J0692; J1650; J1956; J2543; J2930; J3370; J3480; J7050; J7620